=== PATIENT | female | born 1990 | race Hispanic/Latino ===

== ENCOUNTER 2018-10-11 14:15 | Emergency (ER) | payer OTHER | END 2018-10-11 15:22 | disposition home or self-care (01) | LOC: ERS 14:15 | DX: O99.511 Diseases of the respiratory system complicating pregnancy, first trimester (principal); J32.1 Chronic frontal sinusitis; B96.89 Other specified bacterial agents as the cause of diseases classified elsewhere; Z3A.14 14 weeks gestation of pregnancy; Z79.899 Other long term (current) drug therapy | CPT/HCPCS: 99282 ==

== ENCOUNTER 2019-02-28 13:40 | Day surgery (SDC) | payer OTHER ==
[2019-02-28] MEDS ORDERED: Acetaminophen 500 MG TAB PO PRN (13:52)
[2019-02-28] MEDS ORDERED: Iron Sucrose Complex 500 MG in Sodium Chloride 0.9% 250 ML 250 ML IVPB SCH (14:00)
--- NOTE | 2019-02-28 14:02 | PDOC.FPRHP ---
- History of Present Illness Chief Complaint: Anemia During History of Present Illness: Pt is a 28 @ 35.5 wks, due date Apr 07, who presented for an iron infusion secondary to anemia during . She was referred by Dr. Bush [facility]. She is states she occassionally becomes lightheaded. She tries to stay hydrated to help with her symptoms. She denies resting dyspnea, chest pain, vision changes, abdominal pain, palpitations, LE edema. She currently takes ferrous sulfate 325 mg daily, PNV. Of note she also takes pepcid for GERD. Her first 2 deliveries were . She denied any complications, significant past medical history. She has never had an iron infusion. - Allergies/Adverse Reactions Allergies Allergy/AdvReac Type Severity Reaction Status Date / Time Penicillins Allergy Verified 02/28/19 13:58 - Home Medications Medication Instructions Recorded Confirmed Type Ferrous Sulfate 325 mg PO DAILY 02/28/19 02/28/19 History PNV No.118/Iron Fumarate/FA 1 tablet PO DAILY 02/28/19 02/28/19 History [ 19 Chewable Tablet] - History PMHx: denies PSHx: Surgery for scoliosis FHx: Father - DM Social: denies tobacco, alcohol - Review of Systems General: denies: fever/chills, weight/appetite/sleep changes Eyes: denies: vision changes Respiratory: denies: cough, shortness of breath Cardiovascular: reports: edema. denies: chest pain, palpitation Gastrointestinal: denies: nausea, vomiting, abdominal pain Skin: denies: rashes, lesions Neurological: denies: numbness, syncope - Vital signs BP: [119/75] HR: [102] RR: [18] Tmax: [98.4] Pox: []% on [] Wt: [] FMR H&P: A/P - Problem List (1) Anemia affecting in third trimester Status: Acute Code(s): O99.013 - ANEMIA COMPLICATING , THIRD TRIMESTER (2) Third trimester Status: Acute Code(s): Z34.93 - ENCNTR FOR SUPRVSN OF NORMAL PREG, UNSP, THIRD TRIMESTER - Plan # @ 35.5 weeks with 2 previous # Anemia Affecting Previous H/H pending fax from [facility] - iron transfusion protocol, never had previous transfusion - discharge with completion Dispo: Observation for iron transfusion then discharge. FMR H&P: Upper Level - Plan Date/Time: 02/28/19 1402 I, [], have evaluated this patient and agree with findings/plan as outlined by equine internship resident. Pertinent changes/additions are listed here. Addendum - Attending - Attending Attestation Date/Time: 02/28/192015 I personally evaluated the patient and discussed the management with Dr. Bonner I agree with the History, Examination, Assessment and Plan documented above with any addition or exceptions noted below - 28 yo F @35 5/7 weeks here for iron infusion. Denies any ctx. LOF. Denies any N/V. (+) FM. Afebrile VSS. Category 1 FHTs. A/P: 1) Anemia of - iron infusion today. D/c home after infusion if tolerated. F/u @[facility] as scheduled.
[2019-02-28 14:13] VITALS: BP 119/75; TEMP 98.4; BMI 30.9
== END 2019-02-28 18:50 | disposition home or self-care (01) ==
LOC: L&D/OP 13:40
PROVIDERS: ATTEND Family Medicine
DX: O99.013 Anemia complicating pregnancy, third trimester (principal); Z3A.35 35 weeks gestation of pregnancy; Z79.899 Other long term (current) drug therapy; Z88.0 Allergy status to penicillin
CPT/HCPCS: J1756; J7050

== ENCOUNTER 2019-04-05 08:58 | Inpatient (IN) | payer MEDICAID, OTHER ==
[2019-04-05] MEDS ORDERED: Bupivacaine 0.25% HCL 30 ML VIAL ONE (15:00)
[2019-04-05 19:44] VITALS: BMI 31.7
--- NOTE | 2019-04-05 20:12 | PDOC.FPROB ---
FMR OB H&P: HPI - History of Present Illness Chief Complaint: IOL History of Present Illness: at 39.5W by 9W US presents to L&D for IOL. She denies any worrisome symptoms at this time, such as headache, changes in vision, chest pain, cough, shortness of breath, severe N/V/D, loss of fluids, vaginal bleeding or loss of movement. Primary Care Physician: Dr. Hu Bush FMR OB H&P: Current - Care : 3 Para: 2 Gestational age: 39.5W Due date: 04/07/19 Dating Criteria: LMP c/w 9 wk sono - OB Labs Blood type: A RH: positive Antibody Screen: negative HIV: negative RPR: negative HepBsAg: negative Rubella: immune Quad screen: negative Urine drug screen: not done Gonorrhea: negative Chlamydia: negative 1 hour gtt: Failed 3 hour GTT: passed A1c: 5.2 GBS: negative - Additional Ultrasound Additional: [place] 54% FMR OB H&P: History - Past Medical History PMH: Iron Deficiency Anemia, Hx of Spinal Fusion (L4) - OB History OB History: - POST PRODUCTION ASSISTANT History POST PRODUCTION ASSISTANT History: UTI (Remote) - Surgical History Sx History: Hx of Spinal Fusion (L4) - Social History Social History: Denied x3. FMR OB H&P: Medications - Current Home Medications: Medication Instructions Recorded Confirmed Type Ferrous Sulfate 325 mg PO DAILY 02/28/19 04/05/19 History PNV No.118/Iron Fumarate/FA 1 tablet PO DAILY 02/28/19 04/05/19 History [ 19 Chewable Tablet] Allergies/Adverse Reactions: Allergies Allergy/AdvReac Type Severity Reaction Status Date / Time Penicillins Allergy Rash Verified 04/05/19 19:36 FMR OB H&P: ROS - Review of Systems General: reports: fatigue. denies: fever/chills, night sweats, recent trauma Eyes: denies: vision changes, floaters ENT: reports: nasal congestion. denies: rhinorrhea, ear pain, sore throat Cardiovascular: denies: chest pain Respiratory: reports: shortness of breath. denies: cough Gastrointestinal: denies: abdominal pain, nausea, vomiting, diarrhea Genitourinary (Female): denies: dysuria, polyuria, vaginal pain, vaginal bleeding, contractions Musculoskeletal: denies: pain, stiffness Neurologic: denies: numbness, syncope, seizures, headache Integumentary: denies: rash, lesions Endocrine: denies: polyuria Hematologic/Lymphatic: denies: prolonged or excessive bleeding FMR OB H&P: Vital Signs - Maternal Vital signs: Vital Signs - First Documented Temp Pulse Resp BP 98.4 F 110 H 18 133/82 04/05/19 19:36 04/05/19 19:36 04/05/19 19:36 04/05/19 19:36 - Heart Tones Baseline: 140 Variability: moderate Acceleration: present Deceleration: absent Category: category 1 [place] contractions every: Intermittent FMR OB H&P: Physical Exam - Physical Exam General: NAD, awake, alert and oriented HEENT: normocephalic and atraumatic, PERRLA, EOMI, MMM, conjunctiva clear, no scleral icterus, grossly normal vision, grossly normal hearing, normal nasal mucosa, oropharynx clear, good dention Neck: supple, FROM, trachea midline, no LAD Chest: non-tender to palpation, no lesions Breast: symmetric, non-tender, no nipple discharge Heart: RRR, normal S1/S2, no murmurs/rubs/gallops, pulses present, no edema General: CTAB, no respiratory distress, good air movement, no rales/rhonchi, no wheezing, no retractions Abdomen: gravid, non-tender, no masses Musculoskeletal: pulses present, FROM in all four extremities, no misalignment/ asymmetry, no atrophy Neurological: sensation to pain,touch and proprioception grossly normal Skin: no rash Lymphatic: no unusual bruising or bleeding, no purpura, no petechia, no LAD Psychiatric: intact recent and remote memory, good judgement and insight, normal mood and affect - Pelvic Exam Vulva: normal hair distribution Cervix: no masses, no blood SVE: 2029 (1/Thick/High) Forde score: 2029 (1) Membranes: Intact Presentation: Cephalic FMR OB H&P: A/P Disposition: 1. IOL - @ 39.5W by 9W US -1/Thick/High @ 2029 -Cytotec placed @ 2029 -LR @ 125 ml/hr -Anesthesia consulted for epidural placement 2. Anemia of -Fe Supplementation 325 mg PO -Hg / Hct: Pending AM Labs Code: Full Diet: Clear Liquids Activity: Ad Monalisa DVT PPx: None Dispo: Admitted to L&D for IOL. Cervical checks Q4H Discussion: Date/Time: 04/05/192009 This H&P was discussed with [] and [] who agree with the above documentation and plan. Addendum - Attending - Attending Attestation Date/Time: 04/06/19 0654 I personally evaluated the patient and discussed the management with Dr. Elam. I agree with the History, Examination, Assessment and Plan documented above with any addition or exceptions noted below. Elective induction of labor at term.
[2019-04-05] MEDS ORDERED: Carboprost 250 MCG/ML AMP IM PRN (20:15)
[2019-04-05] MEDS ORDERED: NS / Oxytocin 40 units/1000ml 1,000 ML IV PRN (20:15)
[2019-04-05] MEDS ORDERED: Butorphanol Tartrate 1 MG/ML VIAL SLOW IVP PRN (20:15)
[2019-04-05] MEDS ORDERED: Misoprostol 200 MCG TAB PR PRN (20:15)
[2019-04-05] MEDS ORDERED: Methylergonovine 0.2 MG/ML VIAL IM PRN (20:15)
[2019-04-05] MEDS ORDERED: hydrALAZINE 20 MG/ML VIAL SLOW IVP PRN (20:15)
[2019-04-05] MEDS ORDERED: Promethazine HCl 25 MG/ML VIAL IM PRN (20:15)
[2019-04-05] MEDS ORDERED: Acetaminophen 500 MG TAB PO PRN (20:15)
[2019-04-05] MEDS ORDERED: Lidocaine 1% (PF) 30 ML VIAL SC PRN (20:15)
[2019-04-05] MEDS: Misoprostol 100 MCG TAB VAG SCH (20:30)
[2019-04-05] MEDS: Lactated Ringer's 1,000 ML IV SCH (20:30)
[2019-04-05 20:34] LABS: Hemoglobin 11.1 g/dL (12.0-16.0); Mean Corpuscular HGB CONC 34.5 g/dL (32.0-36.0); Mean Corpuscular Hemoglobin 29.8 pg (27.0-31.0); Mean Corpuscular Volume 86.3 fL (78.0-98.0); Mean Platelet Volume 8.6 fL (7.4-10.4); Platelet Count 256 thou/uL (130-400); RBC Distribution Width 15.7 % (11.5-14.5); Red Blood Cell (RBC) Count 3.72 mill/uL (4.20-5.40); White Blood Cell (WBC) Count 11.5 thou/uL (4.8-10.8)
[2019-04-05 21:12] LABS: Syphilis Antibody Nonreactive (Nonreactive); Syphilis Antibody Index 0.03 S/CO (<1.00 Non-Reactive)
[2019-04-05 23:21] LABS: HBSAg Index 0.13 S/CO (0-0.99); Hep B Surf Ag Non-Reactive S/CO (NonReactive)
[2019-04-06] MEDS: Misoprostol 100 MCG TAB VAG SCH ×3 (00:37→20:46)
--- NOTE | 2019-04-06 01:39 | PDOC.OBLPN ---
FMR OB Labor PN: Subj - Interval History Hospital Day: 1 Chief Complaint: IOL Interval History: Planned SVE @ 0030 on 04/06/19 FMR OB Labor PN: Obj - Maternal Vital signs: BP: [133/82] HR: [110] RR: [18] Tmax: [98.4] Pox: []% on [Room] Wt: [] FMR OB Labor PN: Exam - Physical Exam General: NAD HEENT: normocephalic and atraumatic, EOMI, MMM, conjunctiva clear, no scleral icterus, grossly normal vision, TM's clear and intact, grossly normal hearing, normal nasal mucosa, oropharynx clear, good dention Neck: supple, FROM, trachea midline Breast: symmetric, no skin changes, no erythema Heart: RRR, normal S1/S2, no murmurs/rubs/gallops General: CTAB, no respiratory distress, good air movement, no rales/rhonchi, no wheezing, no retractions Abdomen: gravid, non-tender Musculoskeletal: FROM in all four extremities Neurological: sensation to pain,touch and proprioception grossly normal Skin: no rash, good tugor Lymphatic: no unusual bruising or bleeding, no purpura, no petechia Psychiatric: intact recent and remote memory, good judgement and insight, normal mood and affect - Pelvic Exam Vulva: normal hair distribution, no masses, no lesions, no discharge, no blood, normal rugae Cervix: no masses, no lesions, no blood SVE: 1/25%/-3 Forde score: 2 Membranes: Intact FMR OB Labor PN: Data - Labs Lab results: Laboratory Results - last 24 hr 04/05/19 04/05/19 04/05/19 20:26 20:26 20:26 WBC RBC Hgb Hct MCV MCH MCHC RDW Plt Count MPV Syphilis IgG/IgM Ab Nonreactive Hep Bs Antigen Non-Reactive Blood Type A POSITIVE Antibody Screen NEGATIVE 04/05/19 04/05/19 20:26 21:47 WBC 11.5 H RBC 3.72 L Hgb 11.1 L Hct 32.1 L MCV 86.3 MCH 29.8 MCHC 34.5 RDW 15.7 H Plt Count 256 MPV 8.6 Syphilis IgG/IgM Ab Hep Bs Antigen Blood Type A POSITIVE Antibody Screen FMR OB Labor PN: A/P Disposition: 1. IOL -Patient appears comfortable and in no acute distress -Physical exam unremarkable, with heart tones at ~136 BPM, with moderate variability and accelerations present -Cervical change progressing slowly s/p placement of Cytotec -Additional dosage of Cytotec following SVE Dispo: Continue w/ current plan of care. Perform additional SVE @ 0530 on . Expected LOS > 48H Discussion: Date/Time: 04/06/19 0138 This H&P was discussed with [] and [] who agree with the above documentation and plan. Addendum - Attending - Attending Attestation Date/Time: 04/06/19 0648 I personally evaluated the patient and discussed the management with Dr. Elam. I agree with the History, Examination, Assessment and Plan documented above with any addition or exceptions noted below. Elective IOL at term.
[2019-04-06] MEDS: Lactated Ringer's 1,000 ML IV SCH ×2 (04:40→22:12)
--- NOTE | 2019-04-06 04:48 | PDOC.OBLPN ---
FMR OB Labor PN: Subj - Interval History Hospital Day: 1 Chief Complaint: IOL Interval History: Unremarkable FMR OB Labor PN: Obj - Maternal Vital signs: BP: [] HR: [] RR: [] Tmax: [] Pox: []% on [] Wt: [] FMR OB Labor PN: Exam - Physical Exam General: NAD, awake, alert and oriented Neck: supple, FROM, trachea midline Heart: no edema General: no respiratory distress Abdomen: gravid, non-tender Musculoskeletal: FROM in all four extremities, no misalignment/asymmetry, no atrophy Neurological: sensation to pain,touch and proprioception grossly normal Skin: no rash, good tugor Lymphatic: no unusual bruising or bleeding, no purpura, no petechia Psychiatric: intact recent and remote memory, good judgement and insight, normal mood and affect - Pelvic Exam Vulva: normal hair distribution, no masses, no lesions, no discharge, no blood, normal rugae Cervix: no masses, no lesions, no blood SVE: 3/25%/-3 Forde score: 3 Membranes: Intact Presentation: Cephalic FMR OB Labor PN: Data - Labs Lab results: Laboratory Results - last 24 hr 04/05/19 04/05/19 04/05/19 20:26 20:26 20:26 WBC RBC Hgb Hct MCV MCH MCHC RDW Plt Count MPV Syphilis IgG/IgM Ab Nonreactive Hep Bs Antigen Non-Reactive Blood Type A POSITIVE Antibody Screen NEGATIVE 04/05/19 04/05/19 20:26 21:47 WBC 11.5 H RBC 3.72 L Hgb 11.1 L Hct 32.1 L MCV 86.3 MCH 29.8 MCHC 34.5 RDW 15.7 H Plt Count 256 MPV 8.6 Syphilis IgG/IgM Ab Hep Bs Antigen Blood Type A POSITIVE Antibody Screen FMR OB Labor PN: A/P Disposition: 1. IOL -Progression of Latent Stage of Labor ongoing -SVE 3/25%/-3 @ 0430 -Forde Score: 3 -Continue SVE Q4H Dispo: Continue to actively monitor Latent Stage of Labor. Consider augmenting IOL with Pitocin when Forde Score > 6. Expected LOS > 48H Discussion: Date/Time: 04/06/19446 This H&P was discussed with [] and [] who agree with the above documentation and plan. Addendum - Attending - Attending Attestation Date/Time: 04/06/19 0714 I personally evaluated the patient and discussed the management with Dr. Elam. I agree with the History, Examination, Assessment and Plan documented above with any addition or exceptions noted below.
--- NOTE | 2019-04-06 09:17 | PDOC.OBLPN ---
FMR OB Labor PN: Subj - Interval History Hospital Day: 1 Chief Complaint: eIOL Indentification: 29yo @ 39.5 weeks here for eIOL Interval History: 4hour labor check FMR OB Labor PN: Obj - Maternal Vital signs: BP: 130/81 HR: 66 T: 98.4 Pox: 98% on RA - Urine output I&O: not being measured. FMR OB Labor PN: Exam - Physical Exam General: NAD, awake, alert and oriented HEENT: normocephalic and atraumatic, EOMI, MMM, grossly normal vision, grossly normal hearing Neck: supple, trachea midline Breast: symmetric Heart: RRR, normal S1/S2, no murmurs/rubs/gallops, pulses present General: CTAB, no respiratory distress, good air movement Abdomen: soft, gravid Musculoskeletal: normal gait and station Skin: good tugor, capillary refill <2 seconds Lymphatic: no unusual bruising or bleeding, no petechia Psychiatric: intact recent and remote memory, good judgement and insight, normal mood and affect - Pelvic Exam SVE: @0830 /-3 (unchanged) Forde score: 3 Membranes: intact FMR OB Labor PN: Data - Labs Lab results: Laboratory Results - last 24 hr 04/05/19 04/05/19 04/05/19 20:26 20:26 20:26 WBC RBC Hgb Hct MCV MCH MCHC RDW Plt Count MPV Syphilis IgG/IgM Ab Nonreactive Hep Bs Antigen Non-Reactive Blood Type A POSITIVE Antibody Screen NEGATIVE 04/05/19 04/05/19 20:26 21:47 WBC 11.5 H RBC 3.72 L Hgb 11.1 L Hct 32.1 L MCV 86.3 MCH 29.8 MCHC 34.5 RDW 15.7 H Plt Count 256 MPV 8.6 Syphilis IgG/IgM Ab Hep Bs Antigen Blood Type A POSITIVE Antibody Screen FMR OB Labor PN: A/P - Problem List (1) Third trimester Status: Acute Code(s): Z34.93 - ENCNTR FOR SUPRVSN OF NORMAL PREG, UNSP, THIRD TRIMESTER Discussion: Date/Time: 04/06/19 0916 sIUP, term , elective induction of labor. @ 39.5 by 9w US /-3 (unchanged from last exam) Plan for balloon and cytotec for induction of labor. LR @ 125mL/hr Anemia of -Fe Supplementation 325 mg PO -Hg / Hct: Pending AM Labs This H&P was discussed with [] and [] who agree with the above documentation and plan. 1. IOL - @ 39.5W by 9W US -1/Thick/High @ 2029 -Cytotec placed @ 2029 -LR @ 125 ml/hr -Anesthesia consulted for epidural placement Code: Full Diet: Clear Liquids Activity: Ad Monailsa DVT PPx: None Addendum - Attending - Attending Attestation Date/Time: 04/06/19 1011 I personally evaluated the patient and discussed the management with Dr. Yanes I agree with the History, Examination, Assessment and Plan documented above with any addition or exceptions noted below. 29 yo female at 39.5 wks by LMP/9.0 wk sono here for eIOL. Will plan to place Cooks balloon. Exam unchanged but too frequent contractions to place 3rd miso. FHT cat 1 Cephalic. Membranes intact. ABrayMD
--- NOTE | 2019-04-06 14:46 | PDOC.OBLPN ---
FMR OB Labor PN: Subj - Interval History Hospital Day: 2 Chief Complaint: none Indentification: @ 39.5 weeks by LMP c/w 9 wk sono here for an elective SAMIR IOL. Interval History: third cytotec placed @ 11:16 FMR OB Labor PN: Obj - Maternal Vital signs: BP: 110/65 HR: 71 - Procedures Resuscitative measures: maternal IV fluids, maternal position change FMR OB Labor PN: Exam - Physical Exam General: NAD, awake, alert and oriented HEENT: normocephalic and atraumatic, grossly normal vision, grossly normal hearing General: no respiratory distress Abdomen: gravid Musculoskeletal: normal gait and station, FROM in all four extremities Neurological: no focal deficit Skin: no rash, good tugor Lymphatic: no unusual bruising or bleeding Psychiatric: intact recent and remote memory, good judgement and insight, normal mood and affect - Pelvic Exam Vulva: normal hair distribution, appropriate toya stage SVE: 1/Th/High & very posterior Forde score: 2 Membranes: intact Presentation: cephalic FMR OB Labor PN: Data - Labs Lab results: Laboratory Results - last 24 hr 04/05/19 04/05/19 04/05/19 20:26 20:26 20:26 WBC RBC Hgb Hct MCV MCH MCHC RDW Plt Count MPV Syphilis IgG/IgM Ab Nonreactive Hep Bs Antigen Non-Reactive Blood Type A POSITIVE Antibody Screen NEGATIVE 04/05/19 04/05/19 20:26 21:47 WBC 11.5 H RBC 3.72 L Hgb 11.1 L Hct 32.1 L MCV 86.3 MCH 29.8 MCHC 34.5 RDW 15.7 H Plt Count 256 MPV 8.6 Syphilis IgG/IgM Ab Hep Bs Antigen Blood Type A POSITIVE Antibody Screen FMR OB Labor PN: A/P - Problem List (1) Anemia affecting in third trimester Status: Acute Code(s): O99.013 - ANEMIA COMPLICATING , THIRD TRIMESTER Disposition: @ 39.5 by LMP c/w 9w sono here for a SAMIR elective IOL. Term sIUP, elective induction of labor: - Ctx q 2-4 minutes with cat 1 tracing. - SVE 1/thick/high & still very posterior. - s/p cytotec x3 w/ last dose placed @ ~11:16. Will place a third dose now & recheck again in 3 hours & re-attempt balloon placement at that time. - Anesthesia consulted for epidural placement once contractions become more painful. Anemia of - Aware, s/p Fe infusion on 02/25/19. Hgb on admission 11.1. - Will continue Fe Supplementation & PNVs PP. h/o E. coli UTI this - Aware, ANDREA on 11/16/18. Code: Full Diet: Clear Liquids Activity: Ad Monalisa DVT PPx: None Discussion: Date/Time: 04/06/19 1445 This H&P was discussed with Dr. Grey who agrees with the above documentation and plan. Addendum - Attending - Attending Attestation Date/Time: 04/06/19 1214 I personally evaluated the patient and discussed the management with Dr. Catherine I agree with the History, Examination, Assessment and Plan documented above with any addition or exceptions noted below. Internal os not dilated. If anything, FT. Not able to place Cooks. 3rd miso placed. Cat 1 tracing. Ok to eat after 2 hours if nonpainful contractions, not in active labor, and cat 1 tracing. ABrayMD
--- NOTE | 2019-04-06 20:35 | PDOC.LDPN ---
Addendum - Attending - Attending Attestation Date/Time: 04/06/192030 Examined patient, /3. Attempted cooks balloon placement under diret visualization with steriel speculum. Unable to visualized due to vaginal folds and cervix position. Cook balloon placement discontinued. Emerson and are eager for deliver due to his work schedule out of town beginnig on Thursday. Discussed cytotec vs starting pitocin. She tamiko like to continue with cytotec.
--- NOTE | 2019-04-07 | PDOC.LDPN ---
Labor & Delivery Progress Note - Subjective Subjective: comfortable - Objective Vital signs reviewed and normal: yes General: NAD, resting Uterine fundus: non tender SVE: 18:00 Dilation: 1 Effacement: 50% Station: -3 FHT: category 1, variability present [place] contractions every: Intermittent ctx - Assessment (1) Anemia affecting in third trimester Code(s): O99.013 - ANEMIA COMPLICATING , THIRD TRIMESTER Current Visit: No Status: Acute (2) Third trimester Code(s): Z34.93 - ENCNTR FOR SUPRVSN OF NORMAL PREG, UNSP, THIRD TRIMESTER Current Visit: No Status: Acute Plan: continue plan of care -: @ 39.5 by LMP c/w 9w sono here for a SAMIR elective IOL. Term sIUP, elective induction of labor: - Ctx intermittent with Cat 1 strip. - SVE 50/-3 & still very posterior. - s/p cytotec x4. At this time pt wants to take a break but we will try and attempt cooks balloon once pt is back from walking around. Anemia of - Aware, s/p Fe infusion on 02/25/19. Hgb on admission 11.1. - Will continue Fe Supplementation & PNVs PP. h/o E. coli UTI this - Aware, ANDREA on 11/16/18.
--- NOTE | 2019-04-07 01:39 | PDOC.LDPN ---
Labor & Delivery Progress Note - Subjective Subjective: comfortable - Objective Vital signs reviewed and normal: yes General: NAD, resting Uterine fundus: non tender SVE: 1:30 Dilation: 3 Effacement: 50% Station: -3 FHT: category 1, variability present [place] contractions every: Intermittent - Assessment (1) Anemia affecting in third trimester Code(s): O99.013 - ANEMIA COMPLICATING , THIRD TRIMESTER Current Visit: No Status: Acute (2) Third trimester Code(s): Z34.93 - ENCNTR FOR SUPRVSN OF NORMAL PREG, UNSP, THIRD TRIMESTER Current Visit: No Status: Acute Plan: continue plan of care -: @ 39.6 by LMP c/w 9w sono here for a SAMIR elective IOL. Term sIUP, elective induction of labor: - Ctx intermittent with Cat 1 strip. - SVE 3/50/-3 & now midposition. Pt has made change. - s/p cytotec x5. Will place another cytotec and reevaluate in another 4 hours. Anemia of - Aware, s/p Fe infusion on 02/25/19. Hgb on admission 11.1. - Will continue Fe Supplementation & PNVs PP. h/o E. coli UTI this - Aware, ANDREA on 11/16/18.
[2019-04-07] MEDS: Misoprostol 100 MCG TAB VAG SCH (03:05)
[2019-04-07] MEDS ORDERED: NS w/ Oxytocin 10 units 500 ML IV SCH ×2 (05:45)
--- NOTE | 2019-04-07 06:16 | PDOC.LDPN ---
Labor & Delivery Progress Note - Subjective Subjective: comfortable, no concerns - Objective Vital signs reviewed and normal: yes General: NAD, resting Uterine fundus: non tender SVE: 5:30 Dilation: 3 Effacement: 50% Station: -3 FHT: category 1, variability present [place] contractions every: 3-5 minutes. Come and go - Assessment (1) Anemia affecting in third trimester Code(s): O99.013 - ANEMIA COMPLICATING , THIRD TRIMESTER Current Visit: No Status: Acute (2) Third trimester Code(s): Z34.93 - ENCNTR FOR SUPRVSN OF NORMAL PREG, UNSP, THIRD TRIMESTER Current Visit: No Status: Acute Plan: pitocin for augmentation -: @ 39.6 by LMP c/w 9w sono here for a SAMIR elective IOL. Term sIUP, elective induction of labor: - Ctx intermittent with Cat 1 strip. - SVE 350/-3 & now midposition. Pt has not made change. Forde Score of 5. - s/p cytotec x6. -At this time after discussing risks and benefits with patient she would like to proceed with pitocin. Discussed increased chance of failed induction and that she is committed to labor at this point with increased risk of . Pt understood. Will start pitocin for augmentation of labor. Will continue SVE q2-3hrs. Will try and AROM when able. Anemia of - Aware, s/p Fe infusion on 02/25/19. Hgb on admission 11.1. - Will continue Fe Supplementation & PNVs PP. h/o E. coli UTI this - Aware, ANDREA on 11/16/18.
[2019-04-07] MEDS ORDERED: Fentanyl 4 mcg/Bup 0.1% Cadd 100 ML ONE ×2 (07:09→17:03)
--- NOTE | 2019-04-07 08:16 | PDOC.OBLPN ---
FMR OB Labor PN: Subj - Interval History Hospital Day: 3 Chief Complaint: painful contractions Indentification: @ 40 weeks here for a [facility] elective IOL Interval History: no cervical change since last SVE @ ~0530 FMR OB Labor PN: Obj - Maternal Vital signs: BP: 124/81 HR: 89 - Procedures Resuscitative measures: maternal IV fluids, maternal position change [facility]MR OB Labor PN: Exam - Physical Exam General: NAD, awake, alert and oriented HEENT: grossly normal vision, grossly normal hearing General: no respiratory distress Abdomen: gravid Musculoskeletal: normal gait and station, FROM in all four extremities Neurological: no focal deficit Skin: good tugor Lymphatic: no unusual bruising or bleeding Psychiatric: intact recent and remote memory, good judgement and insight, normal mood and affect - Pelvic Exam Vulva: normal hair distribution, appropriate toya stage, no discharge, no blood SVE: 4/50/-3 Forde score: 4 Membranes: intact Presentation: cephalic [facility]MR OB Labor PN: A/P - Problem List (1) Anemia affecting in third trimester Current Visit: No Status: Acute Code(s): O99.013 - ANEMIA COMPLICATING , THIRD TRIMESTER Disposition: @ 40 weeks by LMP c/w 9w sono here for a [facility] elective IOL. Term sIUP, elective induction of labor: - Ctx intermittent with Cat 1 strip. - SVE 4/50/-3 and still posterior. Forde Score of 4. - s/p cytotec x6 & pitocin was started at ~0600 today. - Will continue SVE q2-3hrs & try and AROM when able. Anemia of - Aware, s/p Fe infusion on 02/25/19. Hgb on admission 11.1. - Will continue Fe Supplementation & PNVs PP. h/o E. coli UTI this - Aware, ANDREA on 11/16/18. Discussion: Date/Time: 04/07/19814 This H&P was discussed with Dr. Grey who agrees with the above documentation and plan. Addendum - Attending - Attending Attestation Date/Time: 04/07/19914 I personally evaluated the patient and discussed the management with Dr. Catherine I agree with the History, Examination, Assessment and Plan documented above with any addition or exceptions noted below. Patient and fetus tolerating induction well. Declined 2 step induction. Continue to monitor. Continue pitocin per protocol. Repeat exam in 2 to 4 hours. Carri
[2019-04-07] MEDS ORDERED: Ondansetron PF 4 MG/2 ML Vial IVP PRN (10:43)
[2019-04-07] MEDS ORDERED: Acetaminophen 325 MG TAB PO PRN (10:43)
[2019-04-07] MEDS ORDERED: Lactated Ringer's 500 ML IV PRN (10:43)
[2019-04-07] MEDS ORDERED: Naloxone HCl 0.4 mg/ml Vial IVP PRN ×2 (10:43)
[2019-04-07] MEDS ORDERED: diphenhydrAMINE 50 MG/ML VIAL IVP PRN (10:43)
[2019-04-07] MEDS ORDERED: ePHEDrine/0.9% NaCl/PF SYRINGE 50 mg/10 ml SLOW IVP PRN (10:43)
[2019-04-07] MEDS ORDERED: Promethazine HCl 25 MG/ML VIAL IM PRN (10:43)
[2019-04-07] MEDS ORDERED: Communication Order-Pharmacy FS SCH (10:45)
[2019-04-07] MEDS ORDERED: Fentanyl 4 mcg/Bupivacaine 0.1% Cassette 100 ML EPIDURAL SCH (10:45)
[2019-04-07] MEDS: Dextrose 5%-Lactated Ringers 1,000 ML IV SCH ×2 (11:05→18:36)
--- NOTE | 2019-04-07 11:12 | PDOC.OBLPN ---
FMR OB Labor PN: Subj - Interval History Hospital Day: 3 Chief Complaint: none Indentification: @ 40 weeks by LMP c/w 9 week sono here for elective IOL Interval History: Pitocin started at ~0600 FMR OB Labor PN: Obj - Maternal Vital signs: WNLs - Procedures AROM: clear fluid Resuscitative measures: maternal IV fluids, maternal position change [facility]MR OB Labor PN: Exam - Physical Exam General: NAD, awake, alert and oriented HEENT: normocephalic and atraumatic, grossly normal vision, grossly normal hearing General: no respiratory distress Abdomen: gravid - Pelvic Exam Vulva: normal hair distribution, appropriate toya stage SVE: /- Membranes: ruptured @ ~11:00 Presentation: cephalic [facility]MR OB Labor PN: A/P - Problem List (1) Anemia affecting in third trimester Current Visit: No Status: Acute Code(s): O99.013 - ANEMIA COMPLICATING , THIRD TRIMESTER Disposition: @ 40 weeks by LMP c/w 9w sono here for a [facility] elective IOL. Term sIUP, elective induction of labor: - Ctx intermittent with Cat 1 strip. - SVE - so AROM was performed. - s/p cytotec x6 & pitocin was started at ~0600 today. Will continue pitocin & recheck in 2 hours or sooner if patient begins to feel pressure. Anemia of - Aware, s/p Fe infusion on 02/25/19. Hgb on admission 11.1. - Will continue Fe Supplementation & PNVs PP. h/o E. coli UTI this - Aware, ANDREA on 11/16/18. Discussion: Date/Time: 04/07/19 1112 This H&P was discussed with Dr. Grey who agrees with the above documentation and plan. Addendum - Attending - Attending Attestation Date/Time: 04/07/19 1218 I personally evaluated the patient and discussed the management with Dr. Catherine I agree with the History, Examination, Assessment and Plan documented above with any addition or exceptions noted below. Unchanged. AROM with clear fluid. IUPC as needed. Continue to adjust pitocin as tolerated for adequate contractions. Repeat exam in 2 to 4 hours. Borderline blood pressure. Continue to monitor closely for gHTN or preE. ABrayMD
[2019-04-07] MEDS: Ondansetron PF 4 MG/2 ML Vial IVP PRN ×2 (12:56→20:15)
--- NOTE | 2019-04-07 13:26 | PDOC.OBLPN ---
FMR OB Labor PN: Subj - Interval History Hospital Day: 3 Chief Complaint: none Indentification: @ 40 weeks by 9 week sono here for an elective IOL. Interval History: AROM @ ~11:00 FMR OB Labor PN: Obj - Maternal Vital signs: BP: 116/59 HR: 57 - Procedures Resuscitative measures: maternal IV fluids, maternal position change FMR OB Labor PN: Exam - Physical Exam General: NAD, awake, alert and oriented HEENT: normocephalic and atraumatic, grossly normal vision, grossly normal hearing Neck: supple, FROM General: no respiratory distress Abdomen: gravid Lymphatic: no unusual bruising or bleeding Psychiatric: intact recent and remote memory, good judgement and insight, normal mood and affect - Pelvic Exam Vulva: normal hair distribution, appropriate toya stage SVE: /-1 Membranes: AROM @ 11:00 Presentation: cephalic [facility]MR OB Labor PN: A/P - Problem List (1) Anemia affecting in third trimester Current Visit: No Status: Acute Code(s): O99.013 - ANEMIA COMPLICATING , THIRD TRIMESTER Disposition: @ 40 weeks by LMP c/w 9w sono here for a [facility] elective IOL. Term sIUP, elective induction of labor: - Ctx q2-3 minutes with Cat 1 strip. - SVE /- s/p AROM @ ~11:00 today. - s/p cytotec x6 & pitocin was started at ~0600 today. Will continue pitocin & recheck in 2 hours or sooner if patient begins to feel pressure. Anemia of - Aware, s/p Fe infusion on 02/25/19. Hgb on admission 11.1. - Will continue Fe Supplementation & PNVs PP. h/o E. coli UTI this - Aware, ANDREA on 11/16/18. Discussion: Date/Time: 04/07/19 1326 This H&P was discussed with Dr. Grey who agrees with the above documentation and plan. Addendum - Attending - Attending Attestation Date/Time: 04/07/19 1620 I personally evaluated the patient and discussed the management with Dr. Catherine I agree with the History, Examination, Assessment and Plan documented above with any addition or exceptions noted below. Minimal changes since last exam. Fetus tolerating pitocin well. Will continue to titrate. IUPC to be placed to help titrate pitocin. BP stable with occasional high 130s. Continue to monitor. Repeat exam in 2 hours. IUPC at that time. Carri
--- NOTE | 2019-04-07 16:15 | PDOC.LDPN ---
Labor & Delivery Progress Note - Subjective Subjective: vaginal pressure - Objective Abnormal vital signs: elevated pressures ,150s systolic General: resting Uterine fundus: non tender - Assessment (1) Anemia affecting in third trimester Code(s): O99.013 - ANEMIA COMPLICATING , THIRD TRIMESTER Current Visit: No Status: Acute (2) Third trimester Code(s): Z34.93 - ENCNTR FOR SUPRVSN OF NORMAL PREG, UNSP, THIRD TRIMESTER Current Visit: No Status: Acute -: @ 40 weeks by LMP c/w 9w sono here for a [facility] elective IOL. Term sIUP, elective induction of labor: - Ctx q2-3 minutes with Cat 1 strip. - SVE /0 - s/p cytotec x6 & pitocin was started at ~0600 today. # elevated BP - denies PARKER, sob, swelling, visual changes, or epigastric pain - ordered urine pr/cr ratio, cbc, cmp Anemia of - Aware, s/p Fe infusion on 02/25/19. Hgb on admission 11.1. - Will continue Fe Supplementation & PNVs PP. h/o E. coli UTI this - Aware, ANDREA on 11/16/18. Addendum - Attending - Attending Attestation Date/Time: 04/07/19 6602 I personally evaluated the patient and discussed the management with Dr. Bush I agree with the History, Examination, Assessment and Plan documented above with any addition or exceptions noted below. Now with mild range BP. Monitor for severe. Remains asymptomatic. Labs pending. At this time noted to have gHTN. Awaiting to see if meets criteria for preE. SVE to be done at 1800. IUPC at that time if unchanged. Carri
[2019-04-07 17:10] LABS: Hemoglobin 11.6 g/dL (12.0-16.0); Mean Corpuscular HGB CONC 33.7 g/dL (32.0-36.0); Mean Corpuscular Volume 86.1 fL (78.0-98.0); Mean Platelet Volume 8.2 fL (7.4-10.4); Platelet Count 238 thou/uL (130-400); RBC Distribution Width 15.4 % (11.5-14.5); Red Blood Cell (RBC) Count 4.02 mill/uL (4.20-5.40); White Blood Cell (WBC) Count 14.3 thou/uL (4.8-10.8)
[2019-04-07 17:31] LABS: ALT (SGPT) Less than 7 U/L (8-55); AST (SGOT) 14 U/L (5-34); Albumin 3.1 g/dL (3.5-5.0); Alkaline Phosphatase 156 U/L (40-110); Anion Gap 10 mmol/L (10-20); BUN (Urea Nitrogen) 5 mg/dL (7.0-18.7); Bilirubin, Total 0.5 mg/dL (0.2-1.2); Calc. Creatinine Clearance 182 mL/min (70-130); Calcium 8.8 mg/dL (7.8-10.44); Carbon Dioxide 23 mmol/L (22-29); Chloride 105 mmol/L (98-107); Estimated GFR-MDRD Greater than 90; Globulin 2.9 g/dL (2.4-3.5); Glucose 75 mg/dL (70-105); Potassium 3.7 mmol/L (3.5-5.1); Sodium 134 mmol/L (136-145)
--- NOTE | 2019-04-07 18:15 | PDOC.LDPN ---
Labor & Delivery Progress Note - Subjective Subjective: comfortable - Assessment (1) Anemia affecting in third trimester Code(s): O99.013 - ANEMIA COMPLICATING , THIRD TRIMESTER Status: Acute (2) Third trimester Code(s): Z34.93 - ENCNTR FOR SUPRVSN OF NORMAL PREG, UNSP, THIRD TRIMESTER Status: Acute -: @ 40 weeks by LMP c/w 9w sono here for a [facility] elective IOL. Term sIUP, elective induction of labor: - Ctx q2-3 minutes with Cat 1 strip. - SVE 9/90/0, 9 cm since 1529, increased pitocin to 8 - s/p cytotec x6 & pitocin was started at ~0600 today. # elevated BP - denies PARKER, sob, swelling, visual changes, or epigastric pain - ordered urine pr/cr ratio, cbc, cmp Anemia of - Aware, s/p Fe infusion on 02/25/19. Hgb on admission 11.1. - Will continue Fe Supplementation & PNVs PP. h/o E. coli UTI this - Aware, ANDREA on 11/16/18. Addendum - Attending - Attending Attestation Date/Time: 04/07/19 1950 I personally evaluated the patient and discussed the management with Dr. Bush. I agree with the History, Examination, Assessment and Plan documented above with any addition or exceptions noted below.
[2019-04-07] MEDS ORDERED: Calcium Gluc 4.6 MEQ/10 ML (100 MG/ML) SLOW IVP PRN (19:36)
[2019-04-07] MEDS ORDERED: Magnesium Sulfate 20 GM/WATER 500 ML BAG IVPB SCH (19:45)
--- NOTE | 2019-04-07 19:46 | PDOC.LDPN ---
Labor & Delivery Progress Note - Subjective Subjective: comfortable - Assessment (1) Anemia affecting in third trimester Code(s): O99.013 - ANEMIA COMPLICATING , THIRD TRIMESTER Status: Acute (2) Third trimester Code(s): Z34.93 - ENCNTR FOR SUPRVSN OF NORMAL PREG, UNSP, THIRD TRIMESTER Status: Acute -: @ 40 weeks by LMP c/w 9w sono here for a [facility] elective IOL. Term sIUP, elective induction of labor: - Ctx q2-3 minutes with Cat 1 strip. - SVE 9/90/0, 9 cm since 1529, increased pitocin to 14 - s/p cytotec x6 & pitocin was started at ~0600 today. # elevated BP-> PIH - denies PARKER, sob, swelling, visual changes, or epigastric pain - urine pr/cr ratio 2.34 - persistent BPs in the 140s - will start magnesium Anemia of - Aware, s/p Fe infusion on 02/25/19. Hgb on admission 11.1. - Will continue Fe Supplementation & PNVs PP. h/o E. coli UTI this - Aware, ANDREA on 11/16/18. Addendum - Attending - Attending Attestation Date/Time: 04/07/191950 I personally evaluated the patient and discussed the management with Dr. Bush. I agree with the History, Examination, Assessment and Plan documented above with any addition or exceptions noted below. Kayla has developed Pre-Eclampsia. Magnesium therapy for seizure prophylaxis initiated.
[2019-04-07] MEDS ORDERED: Magnesium Sulfate 20 gm/500 ml 20 GM/500 ML BAG IVPB SCH (20:00)
[2019-04-07] MEDS ORDERED: Lidocaine 1% (PF) 30 ML VIAL ONE (20:14)
[2019-04-07] MEDS ORDERED: NS / Oxytocin 40 units/1000ml 1,000 ML ONE (20:14)
[2019-04-07] MEDS ORDERED: Carboprost 250 MCG/ML AMP ONE (20:23)
[2019-04-07] MEDS ORDERED: Misoprostol 200 MCG TAB ONE ×2 (20:23→20:35)
--- NOTE | 2019-04-07 21:27 | PDOC.OP ---
Operative Note - Operative Note Operative Note: L&D Operative Note - Spontaneous Vaginal Delivery Delivering Physician: Dr. Elam, Dr. Mary Bush Attending Physician: Dr. Brady Procedure: Spontaneous Vaginal Delivery Anesthesia: Epidural QBL: 136 ml Pre-Op Diagnosis: 1. Term Intrauterine 2. Anemia of Post-Op Diagnosis: 1. Term Intrauterine , Delivered 2. -Induced Hypertension 3. Anemia of Indications: A 29 y/o presents in active labor. Delivery Note: This is a 29 y/o F @ 40W who delivered a viable M at 2052 on 04/07/19. Following an uneventful antepartum course, a vigorous M was delivered over an intact perineum in the OA position. Anterior shoulder and then the remainder of the body delivered. No nuchal cord. The head was held down and the nares were bulb suctioned. Cord clamped after approximately 1 minute, cut and cord blood was collected. Placenta delivered intact in the Martinez position with a 3 vessel cord noted. Fundal massage was performed and the fundus was firm. The cervix and vagina were inspected and 2 1-2 cm lacerations were noted at the 2 o'clock and 10 o'clock position, respectively, but both were hemodynamically stable and no active bleeding was noted. went to Nursery in good condition for routine care. APGARS were 8/8 at 1 and 5 minutes, respectively. Patient tolerated the procedure well and went to after routine recovery/care. Addendum - Attending - Attending Attestation Date/Time: 04/12/19 1102 I personally supervised and assisted with the delivery.
[2019-04-08] MEDS ORDERED: hydrALAZINE 20 MG/ML VIAL SLOW IVP PRN (00:21)
[2019-04-08] MEDS ORDERED: Ondansetron PF 4 MG/2 ML Vial IVP PRN (00:21)
[2019-04-08] MEDS ORDERED: Lanolin Ointment 7 GM TUBE TOP PRN (00:21)
[2019-04-08] MEDS ORDERED: Misoprostol 200 MCG TAB VAG PRN (00:21)
[2019-04-08] MEDS ORDERED: NS / Oxytocin 40 units/1000ml 1,000 ML IV SCH (00:21)
[2019-04-08] MEDS ORDERED: Benzocaine-Menthol 82.5 ML CAN TOP PRN (00:21)
[2019-04-08] MEDS ORDERED: Calcium Gluconate 4.6 MEQ in Sodium Chloride 0.9% 100 ML IVPB PRN (00:21)
[2019-04-08] MEDS ORDERED: Magnesium Sulfate 20 gm/500 ml 20 GM/500 ML BAG IVPB SCH (00:21)
[2019-04-08] MEDS ORDERED: Bisacodyl 10 MG SUPP PR PRN (00:21)
[2019-04-08] MEDS ORDERED: Milk Of Magnesia 30 ML UDCUP PO PRN (00:21)
[2019-04-08] MEDS ORDERED: Ibuprofen 800 MG TAB PO SCH (00:30)
--- NOTE | 2019-04-08 00:56 | PDOC.OBMPN ---
[facility] OB LDICU PN: Subj - Interval History Hospital Day: 3 Chief Complaint: No complaint offered, Resting in bed Interval History: No complaints. No SOB, chest pain or increased weakness [facility] LD[facility] PN: Obj - Maternal Vital signs: BP range from 120-130 systolic. No severe range pressures noted - Urine output I&O: UO ranges from 100-400 an hour since delivery [facility] LD[facility] PN: Exam - Physical Exam General: NAD, awake, alert and oriented HEENT: normocephalic and atraumatic, grossly normal vision, grossly normal hearing Neck: supple Heart: RRR, normal S1/S2, no murmurs/rubs/gallops, pulses present, no edema General: CTAB, no respiratory distress, good air movement, no rales/rhonchi, no wheezing, no retractions Abdomen: soft, gravid, non-tender Neurological: sensation to pain,touch and proprioception grossly normal, DTR +2 , no focal deficit Skin: no rash Lymphatic: no unusual bruising or bleeding Psychiatric: normal mood and affect [facility] LDICU PN: Data - Labs Lab results: Laboratory Results - last 24 hr 04/07/19 04/07/19 04/07/19 16:52 16:52 17:29 WBC 14.3 H RBC 4.02 L Hgb 11.6 L Hct 34.6 L MCV 86.1 MCH 29.0 MCHC 33.7 RDW 15.4 H Plt Count 238 MPV 8.2 Sodium 134 L Potassium 3.7 Chloride 105 Carbon Dioxide 23 Anion Gap 10 BUN 5 L Creatinine 0.61 Estimated GFR (MDRD) Greater than 90 Glucose 75 Calcium 8.8 Total Bilirubin 0.5 AST 14 ALT Less than 7 L Alkaline Phosphatase 156 H Serum Total Protein 6.0 Albumin 3.1 L Globulin 2.9 Albumin/Globulin Ratio 1.1 L U Random Total Protein Urine Creatinine 116.73 H 04/07/19 17:29 WBC RBC Hgb Hct MCV MCH MCHC RDW Plt Count MPV Sodium Potassium Chloride Carbon Dioxide Anion Gap BUN Creatinine Estimated GFR (MDRD) Glucose Calcium Total Bilirubin AST ALT Alkaline Phosphatase Serum Total Protein Albumin Globulin Albumin/Globulin Ratio U Random Total Protein 274 H Urine Creatinine [facility] LDICU PN:A/P - Problem List (1) Anemia affecting in third trimester Current Visit: No Status: Acute Code(s): O99.013 - ANEMIA COMPLICATING , THIRD TRIMESTER (2) Third trimester Current Visit: No Status: Acute Code(s): Z34.93 - ENCNTR FOR SUPRVSN OF NORMAL PREG, UNSP, THIRD TRIMESTER (3) Preeclampsia Current Visit: Yes Status: Acute Code(s): O14.90 - UNSPECIFIED PRE-ECLAMPSIA , UNSPECIFIED TRIMESTER Disposition: ->3 delivered TAGA M via @ 40 weeks # elevated BP-> PIH - denies PARKER, sob, swelling, visual changes, or epigastric pain - urine pr/cr ratio 2.34 -BP stable range from 120-130's since delivery. No severe range pressures. -Continue magnesium. -Urine Output adequate Term sIUP, delivered -Routine PP care -pt resting. No complaints at this time. Anemia of - Aware, s/p Fe infusion on 02/25/19. Hgb on admission 11.1. - Will continue Fe Supplementation & PNVs PP. h/o E. coli UTI this - Aware, ANDREA on 11/16/18. Discussion: Date/Time: 04/08/19 0054 This H&P was discussed with [] and [] who agree with the above documentation and plan.
--- NOTE | 2019-04-08 04:32 | PDOC.EVN ---
Event Note - Event Note Event Note: Subjective 300 ml
--- NOTE | 2019-04-08 04:39 | PDOC.OBMPN ---
[facility] OB LDICU PN: Subj - Interval History Hospital Day: 3 Chief Complaint: None - patient resting comfortably at time of evaluation. Interval History: Patient denies PARKER, visual disturbances, CP, SOB or N/V/D. [facility] LDICU PN: Obj - Maternal Vital signs: BP: [117/62] HR: [69] RR: [] Tmax: [] Pox: []% on [Room] Wt: [] - Urine output I&O: 04/06/19 04/07/19 04/08/19 06:59 06:59 06:59 Output Total 221 Balance -221 [facility] LDICU PN: Exam - Physical Exam General: NAD, awake, alert and oriented HEENT: normocephalic and atraumatic, PERRLA, MMM, conjunctiva clear, no scleral icterus, grossly normal vision, grossly normal hearing, normal nasal mucosa, good dention Chest: non-tender to palpation, no lesions Breast: symmetric Heart: RRR, normal S1/S2, no murmurs/rubs/gallops, pulses present, no edema General: CTAB, no respiratory distress, good air movement, no rales/rhonchi, no wheezing, no retractions Musculoskeletal: pulses present Neurological: sensation to pain,touch and proprioception grossly normal, DTR +2 (@ Brachioradialis) [facility] OB LDICU PN: Data - Labs Lab results: Laboratory Results - last 24 hr 04/07/19 04/07/19 04/07/19 16:52 16:52 17:29 WBC 14.3 H RBC 4.02 L Hgb 11.6 L Hct 34.6 L MCV 86.1 MCH 29.0 MCHC 33.7 RDW 15.4 H Plt Count 238 MPV 8.2 Sodium 134 L Potassium 3.7 Chloride 105 Carbon Dioxide 23 Anion Gap 10 BUN 5 L Creatinine 0.61 Estimated GFR (MDRD) Greater than 90 Glucose 75 Calcium 8.8 Total Bilirubin 0.5 AST 14 ALT Less than 7 L Alkaline Phosphatase 156 H Serum Total Protein 6.0 Albumin 3.1 L Globulin 2.9 Albumin/Globulin Ratio 1.1 L U Random Total Protein Urine Creatinine 116.73 H 04/07/19 17:29 WBC RBC Hgb Hct MCV MCH MCHC RDW Plt Count MPV Sodium Potassium Chloride Carbon Dioxide Anion Gap BUN Creatinine Estimated GFR (MDRD) Glucose Calcium Total Bilirubin AST ALT Alkaline Phosphatase Serum Total Protein Albumin Globulin Albumin/Globulin Ratio U Random Total Protein 274 H Urine Creatinine [facility] OB LDICU PN:A/P Disposition: > 3 Delivered KEIKO Case via @ 40 weeks 1. Elevated BP > PIH - Denies PARKER, SOB and visual changes - Urine Protein/Cr Ratio: 2.34 - BP stable in 110s - no severe range pressures. - Continue Mg - Urine output adequate 2. Term sIUP, delivered -Routine PP care -Patient resting - no complaints at this time. 3. Anemia of - Aware, s/p Fe infusion on 02/25/19. Hgb on admission 11.1. - Will continue Fe Supplementation & PNVs PP. 4. h/o E. coli UTI this - Aware, ANDREA on 11/16/18. Discussion: Date/Time: 04/08/19429 Discussion: Date/Time: 04/08/19436 This H&P was discussed with [] and [] who agree with the above documentation and plan.
--- NOTE | 2019-04-08 06:10 | PDOC.PP ---
Post Progress Note Post Day #: 1 Subjective: patient feels well overnight. NO headaches, sob, epigastric pain. Tolerating PO. Minimal bleeding. Denies pain. PO intake tolerated: yes Flatus: yes Ambulation: yes Weight Weight 83.915 kg - Physical Examination General: NAD Cardiovascular: no m/r/g, RRR Respiratory: clear to auscultation bilaterally, non-labored breathing Abdominal: + bowel sounds, lochia, no distention, appropriately TTP Fundus firm & at: 2 cm below umbilicus Extremities: negative homans (B) Neurological: no gross focal deficits Psychiatric: A&Ox3, normal affect Result Diagrams: 04/08/19 06:38 04/07/19 16:52 Additional Labs: Post Labs Blood Type A POSITIVE 04/05/19 21:47 Hep Bs Antigen Non-Reactive S/CO (NonReactive) 04/05/19 20:26 (1) Anemia affecting in third trimester Code(s): O99.013 - ANEMIA COMPLICATING , THIRD TRIMESTER Status: Acute (2) Third trimester Code(s): Z34.93 - ENCNTR FOR SUPRVSN OF NORMAL PREG, UNSP, THIRD TRIMESTER Status: Acute - Assessment/Plan Delivered DOUGA M via @ 40 weeks 1. Elevated BP > PIH - Denies PARKER, SOB and visual changes - Urine Protein/Cr Ratio: 2.34 - BP stable overngiht, 1 systolic of 134, otherwise 110s and 120s - Urine output adequate , >150ml/hr, appropriate resp rate, reflexes +2 - 24 hours mag at 1900 today 2. PP day 1 -Routine PP care 3. Anemia of - Aware, s/p Fe infusion on 02/25/19. Hgb on admission 11.1. - AM H/H pending Addendum - Attending - Attending Attestation Date/Time: 04/08/19 1305 I personally evaluated the patient and discussed the management with Dr. Bush I agree with the History, Examination, Assessment and Plan documented above with any addition or exceptions noted below. 29 yo now female s/p on 04/07/19 at 2053 HD# 3 PPD#1 Patient doing well. Tolerating mag without complications. Denies PARKER, vision changes, CP, SOB, N/V, abdominal pain. Pain controlled. No difficulty with voiding or edema. VS, UOP, labs reviewed. Agree with PE as documented by resident. 1. s/p : Continue routine care. 2. Preeclampsia with severe features: Severe range BP and proteinuria. Continue mag until 2100 today. Asymptomatic. No evidence of mag tox. Continue q 4 hour monitoring. 3. Anemia: Minimal changes for peripartum. 4. hx of lumbar spinal fusion: No complications. Carri
[2019-04-08 06:47] LABS: Hemoglobin 10.7 g/dL (12.0-16.0)
[2019-04-08] MEDS ORDERED: Adacel (T-DAP) 0.5 ML SYRINGE IM ONE (09:00)
[2019-04-08] MEDS ORDERED: Ibuprofen 800 MG TAB ONE (11:57)
[2019-04-08] MEDS: Ibuprofen 800 MG TAB PO SCH ×3 (12:01→20:20)
[2019-04-08] MEDS: Ferrous Sulfate 325 MG TAB PO SCH ×2 (12:01→17:42)
[2019-04-08] MEDS: Docusate Calcium (SURFAK) 240 MG CAP PO SCH ×2 (12:02→21:49)
--- NOTE | 2019-04-08 13:00 | PDOC.PP ---
Post Progress Note Post Day #: 1 Subjective: Pt denied headaches, nausea, vomiting, right upper quadrant pain, vision changes , and endorses minimal swelling. Weight Weight 83.915 kg - Physical Examination General: NAD Cardiovascular: no m/r/g, RRR Respiratory: clear to auscultation bilaterally Neurological: no gross focal deficits (patellar reflex intact) Psychiatric: A&Ox3, normal affect Result Diagrams: 04/08/19 06:38 04/07/19 16:52 Additional Labs: Post Labs Blood Type A POSITIVE 04/05/19 21:47 Hep Bs Antigen Non-Reactive S/CO (NonReactive) 04/05/19 20:26 - Assessment/Plan Delivered KEIKO M via @ 40 weeks 1. PreE -bp's not in severe range - Denies PARKER, SOB and visual changes - Urine Protein/Cr Ratio: 2.34 - Urine output adequate - 24 hours mag at 2100 today, plan to dc at that time. 2. PP day 1 -Routine PP care 3. Anemia of - Aware, s/p Fe infusion on 02/25/19. Hgb on admission 11.1. Addendum - Attending - Attending Attestation Date/Time: 04/08/19 1305 I personally evaluated the patient and discussed the management with Dr. Himanshu Dudley I agree with the History, Examination, Assessment and Plan documented above with any addition or exceptions noted below. 29 yo now female s/p on 04/07/19 at 2053 HD# 3 PPD#1 Continues to do well. No complaints. VS, UOP, labs reviewed. Agree with PE as documented by resident. 1. s/p : Continue routine care. Prefers bottle feeding but interested in possibly breast feeding. 2. Preeclampsia with severe features: Severe range BP and proteinuria. Continue mag until 2100 today. Asymptomatic. No evidence of mag tox. Continue q 4 hour monitoring. 3. Anemia: Minimal changes for peripartum. 4. hx of lumbar spinal fusion: No complications. 5. Contraception: IUD ABrayMD
--- NOTE | 2019-04-08 16:52 | PDOC.PP ---
Post Progress Note Post Day #: 1 Subjective: Doing well. No complaints. Denies headache, vision changes, ruq pain, swelling. Weight Weight 83.915 kg - Physical Examination General: NAD Cardiovascular: no m/r/g, RRR Respiratory: clear to auscultation bilaterally Neurological: no gross focal deficits (patellar reflex intact) Psychiatric: A&Ox3, normal affect Result Diagrams: 04/08/19 06:38 04/07/19 16:52 Additional Labs: Post Labs Blood Type A POSITIVE 04/05/19 21:47 Hep Bs Antigen Non-Reactive S/CO (NonReactive) 04/05/19 20:26 (1) (normal spontaneous vaginal delivery) Code(s): O80 - ENCOUNTER FOR FULL-TERM UNCOMPLICATED DELIVERY Status: Acute (2) Preeclampsia Code(s): O14.90 - UNSPECIFIED PRE-ECLAMPSIA, UNSPECIFIED TRIMESTER Status: Acute (3) Anemia affecting in third trimester Code(s): O99.013 - ANEMIA COMPLICATING , THIRD TRIMESTER Status: Acute - Assessment/Plan Delivered KEIKO Case via @ 40 weeks 1. PreE with severe range bps -severe range bp's now resolved -range ox630n to 140s/60-70s; no severe range bp's - Denies PARKER, SOB and visual changes - 24 hours mag at 2100 today, plan to dc at that time. -UOP more than adequate; ~350/hr 2. PP day 1 -Routine PP care 3. Anemia of - Aware, s/p Fe infusion on 02/25/19. Hgb on admission 11.1. Addendum - Attending - Attending Attestation Date/Time: 04/08/19 8402 I personally evaluated the patient and discussed the management with Dr. Himanshu Dudley I agree with the History, Examination, Assessment and Plan documented above with any addition or exceptions noted below. 29 yo now female s/p on 04/07/19 at 2053 HD# 3 PPD#1 Continues to do well. No complaints. VS, UOP, labs reviewed. Agree with PE as documented by resident. 1. s/p : Continue routine care. Prefers bottle feeding but interested in possibly breast feeding. Does not want to breast feed while receiving medications. nurse in AM. 2. Preeclampsia with severe features: Severe range BP and proteinuria. Continue mag until 2099 today. Asymptomatic. No evidence of mag tox. Continue q 4 hour monitoring. 3. Anemia: Minimal changes for peripartum. 4. hx of lumbar spinal fusion: No complications. 5. Contraception: IUD ABrayMD
--- NOTE | 2019-04-08 20:06 | PDOC.OBMPN ---
[facility] OB LDICU PN: Subj - Interval History Hospital Day: 4 Chief Complaint: 1D s/p , complicated by Pre-Eclampsia Interval History: No complaints offered by patient R OB LDICU PN: Obj - Maternal Vital signs: BP: [127/67] HR: [79] RR: [] Tmax: [] Pox: []% on [Room] Wt: [] - Urine output I&O: 04/07/19 04/08/19 04/09/19 06:59 06:59 06:59 Output Total 221 Balance -221 [facility] OB LDICU PN: Exam - Physical Exam General: NAD, awake, alert and oriented HEENT: normocephalic and atraumatic, PERRLA, EOMI, MMM, conjunctiva clear, no scleral icterus, grossly normal vision, grossly normal hearing, normal nasal mucosa, oropharynx clear, good dention Neck: supple, FROM, trachea midline, no LAD Chest: non-tender to palpation, no lesions Breast: symmetric, no nipple discharge Heart: RRR, normal S1/S2, no murmurs/rubs/gallops, pulses present Deviation from normal: Trace LE Edema bilaterally - consistent w/ previous assessment General: CTAB, no respiratory distress, good air movement, no rales/rhonchi, no wheezing, no retractions Abdomen: soft, other (Mild TTP) Musculoskeletal: normal gait and station, pulses present, FROM in all four extremities, no misalignment/asymmetry, no atrophy Neurological: sensation to pain,touch and proprioception grossly normal, DTR +2 (Patellar Reflex intact, bilaterally) Skin: no rash, no jaundice : no drainage, appropriately tender Lymphatic: no unusual bruising or bleeding, no purpura, no petechia, no LAD Psychiatric: intact recent and remote memory, good judgement and insight, normal mood and affect - Pelvic Exam : no discharge [facility] OB LDICU PN: Data - Labs Lab results: Laboratory Results - last 24 hr 04/08/19 04/08/19 00:35 06:38 Hgb 10.7 L Hct 31.8 L Magnesium 4.3 H [facility] OB LDICU PN:A/P - Problem List (1) Preeclampsia Current Visit: Yes Status: Acute Code(s): O14.90 - UNSPECIFIED PRE-ECLAMPSIA , UNSPECIFIED TRIMESTER Disposition: Disposition: > 3, s/p of KEIKO M @ 40 weeks 1. Elevated BP > PIH - Continues to deny PARKER, SOB and visual changes - Urine Protein/Cr Ratio: 2.34 - BP readings over past 4 hours stable in 130s - no severe range pressures. - Repeat BP @ 2022 was 127/67 - Urine output adequate 2. Term sIUP, delivered -Routine PP care -Patient resting - no complaints at this time. 3. Anemia of - Aware, s/p Fe infusion on 02/25 - Hgb on admission 11.1 - 10.7 on 04/08 - Will continue Fe Supplementation & PNVs PP. 4. h/o E. coli UTI this - Aware, ANDREA on 11/16/18. Dispo: DC Mg at this time and transfer to [employer] Floor. Discussion: Date/Time: 04/08/192003 This H&P was discussed with [] and [] who agree with the above documentation and plan.
[2019-04-09] MEDS: Ibuprofen 800 MG TAB PO SCH ×3 (05:16→21:20)
--- NOTE | 2019-04-09 06:38 | PDOC.OBPPN ---
[facility]MR OB PN: Subj - Interval History Hospital Day: 5 Day: 2 Chief Complaint: @ 20:53 (04/07/2019) @ 40.0wks EGA. Indentification: 29 yo Interval History: Doing well, emotional this morning about baby's bilirubin. [facility]MR OB PN: Obj - Maternal Vital signs: Selected Entries 04/09/19 05:15 Temperature 98.1 F Pulse Rate 68 Respiratory 20 Rate O2 Sat by Pulse 94 L Oximetry Oxygen Delivery Room Air Method Selected Entries 04/05/19 04/09/19 04/09/19 19:36 00:00 05:15 Blood Pressure 133/82 125/56 L 130/64 [Semi-Fowlers] - Urine output I&O: 04/07/19 04/08/19 04/09/19 06:59 06:59 06:59 Output Total 221 Balance -221 - Lochia Lochia: Minimal - Pain Management Intervention: oral medication [facility]MR OB PN: Exam - Physical Exam General: NAD, awake, alert and oriented HEENT: normocephalic and atraumatic, PERRLA, MMM, grossly normal vision, grossly normal hearing Neck: supple, trachea midline Chest: non-tender to palpation Breast: symmetric Heart: RRR, normal S1/S2, no murmurs/rubs/gallops, pulses present, no edema General: CTAB, no respiratory distress, good air movement, no rales/rhonchi, no wheezing Abdomen: soft, non-tender, bowel sound present Musculoskeletal: normal gait and station, pulses present Neurological: sensation to pain,touch and proprioception grossly normal, DTR +2 , strength +5, no clonus, no tremor, no focal deficit Skin: capillary refill <2 seconds Deviation from normal: tinea versicolor on neck : appropriately tender Lymphatic: no unusual bruising or bleeding, no petechia Psychiatric: intact recent and remote memory - Pelvic Exam : normal lochia FMR OB PN: Data - Labs Lab results: Laboratory Results - last 24 hr 04/08/19 06:38 Hgb 10.7 L Hct 31.8 L FMR OB PN: A/P - Problem List (1) Third trimester Current Visit: No Status: Acute Code(s): Z34.93 - ENCNTR FOR SUPRVSN OF NORMAL PREG, UNSP, THIRD TRIMESTER Disposition: Stable Discussion: Date/Time: 04/09/19 0637 29yo Delivered KEIKO Case via @ 40 weeks on 04/07/19 @ 20:53. 1. Elevated BP > PIH - Denies PARKER, SOB and visual changes - Urine Protein/Cr Ratio: 2.34 - BP stable overngiht, 1 systolic of 134, otherwise 110s and 120s - Urine output adequate , >150ml/hr, appropriate resp rate, reflexes +2 - Received IV magnesium for ~24 hours. Has been off magnesium overnight and blood pressures have been stable, one elevated this am. - Will monitor until tomorrow. 2. PP day 1 -Routine PP care - likely d/c tomorrow, baby needs phototherapy and mom needs blood pressure monitoring overnight. 3. Anemia of - Aware, s/p Fe infusion on 02/25/19. Hgb on admission 11.1. 4. Tinea versicolor Will start Clotrimazole cream. This H&P was discussed with Dr. Grey who agree with the above documentation and plan. Addendum - Attending - Attending Attestation Date/Time: 04/09/19 0934 I personally evaluated the patient and discussed the management with Dr. Yanes I agree with the History, Examination, Assessment and Plan documented above with any addition or exceptions noted below. 29 yo now female s/p on 04/07/19 at 2053 HD# 4 PPD#2 Did well overnight. No complications with mag. Stopped at 2100. VS,labs reviewed. Agree with PE as documented by resident. 1. s/p : Continue routine care. nurse this morning. 2. Preeclampsia with severe features: Severe range BP and proteinuria. s/p mag x 24 hours after delivery. Monitor. Remains asymptomatic. 3. Anemia: Minimal changes for peripartum. 4. hx of lumbar spinal fusion: No complications. 5. Contraception: IUD 6. Blues: Tearful on exam today. No previous episodes. No known underlying risk. Monitor closely. Encourage breast feeding. SSRI as needed. Will need weekly follow up. Likely d/c tomorrow. Carri
[2019-04-09] MEDS: Misoprostol 100 MCG TAB VAG SCH ×3 (07:37→07:39)
[2019-04-09] MEDS: Lactated Ringer's 1,000 ML IV SCH ×3 (07:37→08:18)
[2019-04-09] MEDS: Ferrous Sulfate 325 MG TAB PO SCH ×2 (08:17→17:03)
[2019-04-09] MEDS: Docusate Calcium (SURFAK) 240 MG CAP PO SCH ×2 (08:17→21:18)
[2019-04-09] MEDS: Clotrimazole 1 % Cream 30 GM TUBE TOP SCH (21:19)
[2019-04-10] MEDS: Ibuprofen 800 MG TAB PO SCH ×2 (05:11→14:22)
--- NOTE | 2019-04-10 07:01 | PDOC.OBPPN ---
FMR OB PN: Subj - Interval History Hospital Day: 6 Day: 3 Chief Complaint: @ 40.0wks on 04/07/19 @20:53 to KEIKO Case Indentification: 29 Interval History: Doing well, no new concerns or complaints. FMR OB PN: Obj - Maternal Vital signs: Selected Entries 04/10/19 05:17 Temperature 97.9 F Pulse Rate 77 Respiratory 16 Rate Selected Entries 04/09/19 04/09/19 04/09/19 05:15 08:18 11:53 Blood Pressure 130/64 142/78 H 147/73 H [Semi-Fowlers] 04/09/19 04/09/19 04/10/19 15:25 19:30 00:15 Blood Pressure 129/67 146/73 H 140/71 [Semi-Fowlers] 04/10/19 05:17 Blood Pressure 141/80 H [Semi-Fowlers] - Urine output I&O: 04/08/19 04/09/19 04/10/19 06:59 06:59 06:59 Output Total 221 Balance -221 - Lochia Lochia: minimal - Pain Management Intervention: oral medication (ibuprofen) FMR OB PN: Exam - Physical Exam General: NAD, awake, alert and oriented HEENT: normocephalic and atraumatic, PERRLA, EOMI, MMM, grossly normal vision, grossly normal hearing Neck: supple, trachea midline Breast: symmetric Heart: RRR, normal S1/S2, no murmurs/rubs/gallops General: CTAB, no respiratory distress, good air movement, no rales/rhonchi, no wheezing Abdomen: soft, non-tender Musculoskeletal: normal gait and station Skin: no rash, good tugor, capillary refill <2 seconds Lymphatic: no unusual bruising or bleeding Psychiatric: intact recent and remote memory, good judgement and insight, other (tearful) - Pelvic Exam : normal lochia FMR OB PN: A/P - Problem List (1) Third trimester Status: Acute Code(s): Z34.93 - ENCNTR FOR SUPRVSN OF NORMAL PREG, UNSP, THIRD TRIMESTER Disposition: Stable Discussion: Date/Time: 04/10/19 0659 29yo Delivered KEIKO Case via @ 40 weeks on 04/07/19 @ 20:53. 1. Preeclampsia w/ severe features (BP and proteinuria) - Denies PARKER, SOB and visual changes - Urine Protein/Cr Ratio: 2.34 - Consistently elevated BPs yesterday in the 140s/80s. - Received IV magnesium for ~24 hours . - Will start Amlodipine 5mg today and monitor, if BP remains stable will d/c this afternoon. 2. - Routine PP care - Will f/u in 1 week after d/c due to HTN and tearfulness to closely monitor for depression. 3. Anemia of - Aware, s/p Fe infusion on 02/25/19. Hgb on admission 11.1. 4. Tinea versicolor - Will start Clotrimazole cream. This H&P was discussed with Dr. Grey who agree with the above documentation and plan. Addendum - Attending - Attending Attestation Date/Time: 04/10/19 0106 I personally evaluated the patient and discussed the management with Dr. Yanes I agree with the History, Examination, Assessment and Plan documented above with any addition or exceptions noted below. 29 yo now female s/p on 04/07/19 at 2053 HD# 5 PPD#3 No acute changes overnight. Blood pressure remained mild range. Asymptomatic. Lochia mild. Pain controlled. VS,labs reviewed. Agree with PE as documented by resident. 1. s/p : [place]. Declined breast feeding. 2. Preeclampsia with severe features: Severe range BP and proteinuria. s/p mag x 24 hours after delivery. Remains asymptomatic. BP mild range. CCB started. Will monitor BP at home. 3. Anemia: Iron rich foods. 4. hx of lumbar spinal fusion: No complications. 5. Contraception: IUD 6. Blues: Somewhat improved today. Not tearful on exam. Monitor closely. D/c to home today. Follow up at [facility] in 1 wk for BP check and mood. Carri
[2019-04-10] MEDS: Ferrous Sulfate 325 MG TAB PO SCH (09:21)
[2019-04-10] MEDS: Clotrimazole 1 % Cream 30 GM TUBE TOP SCH (09:22)
[2019-04-10] MEDS: Docusate Calcium (SURFAK) 240 MG CAP PO SCH (09:23)
[2019-04-10] MEDS ORDERED: Amlodipine 5 MG TAB PO SCH ×2 (10:26→10:45)
[2019-04-10 12:16] VITALS: BP 146/78; TEMP 98.8
[2019-04-11] MEDS ORDERED: Amlodipine 5 MG TAB PO SCH ×2 (09:00)
== END 2019-04-10 16:35 | disposition home or self-care (01) | DRG 806 ==
LOC: EDSTATUS 14:40 → L&D 19:07 → 3SW 04-08 21:01
PROVIDERS: ADMIT Family Medicine; ATTEND Family Medicine
PROC: 10E0XZZ Delivery of Products of Conception, External Approach (ICD-10-PCS; principal; 2019-04-05)
PROC: 10907ZC Drainage of Amniotic Fluid, Therapeutic from Products of Conception, Via Natural or Artificial Opening (ICD-10-PCS; 2019-04-05)
PROC: 3E0P7VZ Introduction of Hormone into Female Reproductive, Via Natural or Artificial Opening (ICD-10-PCS; 2019-04-05)
PROC: 3E033VJ Introduction of Other Hormone into Peripheral Vein, Percutaneous Approach (ICD-10-PCS; 2019-04-05)
DX: O99.02 Anemia complicating childbirth (principal); O63.9 Long labor, unspecified; Z37.0 Single live birth; O14.14 Severe pre-eclampsia complicating childbirth; D50.9 Iron deficiency anemia, unspecified; Z3A.39 39 weeks gestation of pregnancy; Z88.0 Allergy status to penicillin; Z87.440 Personal history of urinary (tract) infections; O70.9 Perineal laceration during delivery, unspecified
CPT/HCPCS: 36415; 51702; 80053; 82570; 83735; 84156; 85014; 85018; 85027; 86780; 86850; 86900; 86901; 87340; J2001; J2405; J2550; J3475; J3490; S0020